=== PATIENT | female | born 1950 | race Caucasian/White ===

== ENCOUNTER 2016-10-06 09:42 | Emergency (ER) | payer BC ==
--- NOTE | 2016-10-06 09:46 | PDOC ---
Attending Attestation - Resident Resident Name: [email or web address] - ED Attending Attestation I have performed the following: I have examined & evaluated the patient, The case was reviewed & discussed with the resident, I agree w/resident's findings & plan, Exceptions are as noted - HPI HPI: 10/06/16 09:45 The patient is a 66-year-old female, with no significant past medical history, who presents to the emergency department complaining of "left sided rib pain" after a mechanical fall last night. She denies cough, fever, dyspnea. She denies head trauma. She denies pain or injury elsewhere. 10/06/16 10:07 - Physicial Exam PE: 10/06/16 09:45 She is well-appearing and in no acute distress Vitals noted Lungs clear No abdominal tenderness, even with deep palpation in the LUQ Mild diffuse tenderness over left lateral chest wall 10/06/16 10:07 - Medical Decision Making 10/06/16 10:08 She is well appearing and in no acute distress Will obtain PA and Lateral CXR to ro lung injury 10/06/16 10:23 Chest x-ray emergency Department interpretation: No acute cardiopulmonary disease Clinical impression: Chest wall contusion I discussed the physical exam findings, ancillary test results and final diagnoses with the patient. I answered all of the patient's questions. The patient was satisfied with the care received and felt comfortable with the discharge plan and treatment plan. The patient will call their primary care physician within 24 hours to arrange follow-up and will return to the Emergency Department with any new, persistent or worsening symptoms.
--- NOTE | 2016-10-06 09:47 | PDOC ---
History of Present Illness - General Chief Complaint: Injury Stated Complaint: LEFT RIB CAGE PAIN S/P FALL Time Seen by Provider: 10/06/16 09:44 History Source: Patient Exam Limitations: No Limitations - History of Present Illness Initial Comments: 10/06/16 10:09 Patient is a 66 year old female with significant PMH of HTN, HLD, Hypothyroidism & celiac disease who rpesents to D s/p mechanical fall. Patient states she was in the shower yesterday evening and slipped, landing on her left side. She denies any lightheadedness, syncopal events, aura, chest pain or SOB preceding or following the event. She was able to get herself up and went to a social event afterwards. She took an Aleve at 2am and went to bed with moderate pain around her lower lateral left rib cage. The pain is only alleviated by staying still as any kind of motion or deeper breaths exacerbate it. She takes 2 baby aspirin per day, last taking one this AM. Past History - Travel Traveled outside of the country in the last 30 days: No Close contact w/someone who was outside of country & ill: No - Past Medical History Allergies/Adverse Reactions: Allergies Allergy/AdvReac Type Severity Reaction Status Date / Time No Known Allergies Allergy Verified 10/06/16 09:43 Home Medications: Ambulatory Orders Aspirin [ASA -] 81 mg PO BID 08/02/12 Atorvastatin Ca [Lipitor] 10 mg PO DAILY 08/02/12 Esomeprazole Mag Trihydrate [Nexium] 40 mg PO DAILY 08/02/12 Levothyroxine [Synthroid -] 137 mcg PO DAILY 08/02/12 Topiramate 25 mg PO BID 08/02/12 Acetaminophen [Acetaminophen 8 Hour] 650 mg PO Q6H PRN #20 tablet.er 10/06/16 Calcium Carbonate/Vitamin D3 [Calcium 500 + Vit D Caplet] 1 each PO BID Cyanocobalamin [Vitamin B12 -] 0 mcg PO DAILY 10/06/16 Lisinopril 0 mg PO DAILY 10/06/16 GI Disorders: Yes (Celiacs) HTN: Yes Hypercholesterolemia: Yes Thyroid Disease: Yes (hypo) - Surgical History GI Surgery: Yes (cholecystectomy) - Psycho/Social/Smoking Cessation Hx Anxiety: No Suicidal Ideation: No Smoking Status: No Smoking History: Former smoker Years of Tobacco Use: 10 Have you smoked in the past 12 months: No Number of Cigarettes Smoked Daily: 0 If you are a former smoker, when did you quit?: 30 years ago Information on smoking cessation initiated: No Hx Alcohol Use: No Drug/Substance Use Hx: No Review of Systems - Review of Systems Able to Perform ROS?: Yes Is the patient limited [place]ic proficient: No Musculoskeletal: Yes: Back Pain (left sided ribs) *Physical Exam - Physical Exam General Appearance: Yes: Appropriately Dressed, Apparent Distress, Obese HEENT: positive: EOMI, AMRINA, Normal ENT Inspection, Pharynx Normal Neck: positive: Trachea midline, Supple Respiratory/Chest: positive: Lungs Clear, Normal Breath Sounds Cardiovascular: positive: Regular Rhythm, Regular Rate, S1, S2 Gastrointestinal/Abdominal: positive: Normal Bowel Sounds, Flat, Soft Musculoskeletal: positive: Normal Inspection, Other (tender to palpation or deep breaths at left mid-axillary rib cage) Integumentary: positive: Normal Color, Dry, Warm Neurologic: positive: captain room service II-XII NML intact, Fully Oriented, Alert, Normal Mood/ Affect, Motor Strength 5/5 Medical Decision Making - Medical Decision Making 10/06/16 10:18 Given Tylenol for pain management. Ordered Chest XRay to r/o fracture or acute lung injury. 10/06/16 10:37 Chest XRay with no signs of acute lung injury or rib fractures. Patient advised to take Tylenol 650mg q6h as needed for pain management and return to ED if shortness of breath or fever develop. Will f/u with her PCP. *DC/Admit/Observation/Transfer Diagnosis at time of Disposition: Contusion of chest wall - Discharge Dispostion Disposition: HOME Condition at time of disposition: Improved Admit: No - Prescriptions Prescriptions: Acetaminophen [Acetaminophen 8 Hour] 650 mg PO Q6H PRN #20 tablet.er PRN Reason: Pain
[2016-10-06 09:48] VITALS: TEMP 97.5; BMI 33.5
[2016-10-06] MEDS ORDERED: ACETAMINOPHEN 500 MG TABLET (FP) PO ONE ×2 (10:09→10:15)
[2016-10-06] MEDS ORDERED: ACETAMINOPHEN 325 MG TABLET (FP) ONE (10:14)
[2016-10-06 11:30] VITALS: BP 138/90; PULSE 90
== END 2016-10-06 10:45 | disposition home or self-care (01) ==
LOC: FER 09:42
DX: S20.212A Contusion of left front wall of thorax, initial encounter (principal); I10 Essential (primary) hypertension; E78.00 Pure hypercholesterolemia, unspecified; E03.9 Hypothyroidism, unspecified; K90.0 Celiac disease; W18.2XXA Fall in (into) shower or empty bathtub, initial encounter; Y93.E1 Activity, personal bathing and showering; Y92.012 Bathroom of single-family (private) house as the place of occurrence of the external cause
CPT/HCPCS: 71020-TC; 99282-25